=== PATIENT | male | born 1960 | race Hispanic/Latino ===

== ENCOUNTER 2016-07-17 20:29 | Emergency (ER) | payer OTHER ==
--- NOTE | 2016-07-17 21:13 | ED.PDOC ---
History of Present Illness - General Chief Complaint: Lower Extremity Injury Stated Complaint: R FOOT,,, PAIN Time Seen by Provider: 07/17/16 21:08 Source: patient Exam Limitations: no limitations - History of Present Illness Initial Comments: Patient presents after stepping off of a step and losing his balance, twisting his right ankle. He did not fall to the ground completely. He can walk on the foot with mild to moderate pain. Pain is located anterior to both the lateral and medial malleoli. There is also pain on the proximal dorsomedial foot. Non- radiating. Worse with movement, better with rest. He believes that he has injured the foot before a long time ago. No other complaints. 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 Timing/Duration: 1/2 hour Severity: mild Improving Factors: rest Worsening Factors: movement Associated Symptoms: denies symptoms Allergies/Adverse Reactions: Allergies NO KNOWN ALLERGY Allergy (Verified 07/17/16 21:07) Review of Systems - Review of Systems Constitutional: States: no symptoms reported EENTM: States: no symptoms reported Respiratory: States: no symptoms reported Cardiology: States: no symptoms reported Gastrointestinal/Abdominal: States: no symptoms reported Genitourinary: States: no symptoms reported Musculoskeletal: States: no symptoms reported Skin: States: no symptoms reported Neurological: States: no symptoms reported Endocrine: States: no symptoms reported Hematologic/Lymphatic: States: no symptoms reported Family Medical History - Family History Mother Family History: Unknown Living Status: Unknown Physical Exam - Physical Exam General Appearance: Alert Respiratory: lungs clear Cardiovascular/Chest: regular rate, rhythm Gastrointestinal/Abdominal: normal bowel sounds, non tender, soft Extremity: other - Patient can dorsiflex, plantarflex, ne, and invert the right foot against resistance but it causes mild to moderate pain in all directions. He is mildly TTP on the proximal dorsomedial foot. Full sensation on entire foot. Can flex and extend the toes against resistance without pain. Capillary refill less than 2 seconds. Dorsal pedis pulse 2+. Neurologic: no motor/sensory deficits Progress - Progress Progress: 07/17/16 21:52 Radiographs of the right foot and ankle showed no acute fracture. Departure - Departure Clinical Impression: Sprain of right ankle or foot Disposition: Discharge to Home or Self Care Condition: Good Departure Forms: ED Discharge - Pt. Copy, Patient Portal Self Enrollment Diet: resume usual diet Activity: increase activity as tolerated Additional Instructions: Ice to area three times per day for three days then switch to heat twice per day. May use ibuprofen or tylenol for pain control. Follow up with your regular physician if pain continues beyond two weeks. Return to activity as tolerated.
[2016-07-17 21:14] VITALS: O2SAT 97
--- NOTE | 2016-07-17 21:42 | RAD ---
EXAM DESCRIPTION: XR ANKLE 3 OR MORE VIEWS; XR FOOT 3 OR MORE VIEWS CLINICAL HISTORY: 55 y/o Mfall. Right foot and ankle pain. COMPARISON: None. TECHNIQUE: Three views of the right ankle and three views of the right foot. FINDINGS: No acute fractures or dislocations are identified. No osseous destructive lesions. IMPRESSION: No acute fracture is identified. Electronically signed by: Luis Miguel Doe MD 07/17/2016 21:40
[2016-07-17 22:04] VITALS: BP 118/72; TEMP 97.5
== END 2016-07-17 22:03 | disposition home or self-care (01) ==
LOC: ER 20:29
DX: S93.401A Sprain of unspecified ligament of right ankle, initial encounter (principal); X50.1XXA Overexertion from prolonged static or awkward postures, initial encounter; Y92.239 Unspecified place in hospital as the place of occurrence of the external cause; Y99.0 Civilian activity done for income or pay

== ENCOUNTER 2019-12-20 05:14 | Day surgery (SDC) | payer BC ==
[2019-12-20] MEDS ORDERED: LACTATED RINGERS 1,000 ML ONE (06:56)
[2019-12-20] MEDS ORDERED: LACTATED RINGERS 1,000 ML IVS ONE (12:25)
--- NOTE | 2019-12-20 13:31 | OP ---
DATE OF PROCEDURE: 12/20/19 PREOPERATIVE DIAGNOSIS: 1. Average risk colorectal cancer screening. This is the patient's first colonoscopy. 2. Incidental indication is perianal discomfort. POSTOPERATIVE DIAGNOSIS: 1. Small internal hemorrhoids. 2. Sigmoid diverticulosis. PROCEDURE: 1. Colonoscopy. SURGEON: Daniel Jack MD. COMPLICATIONS: None apparent. BLOOD LOSS: None. MEDICATIONS: Monitored anesthesia care. DESCRIPTION OF PROCEDURE: Informed consent was obtained prior to sedation. The preprocedure cardiopulmonary assessment was satisfactory. The patient was placed in the left lateral decubitus position and was sedated. A digital rectal exam was performed and reveals no external hemorrhoids, no anal fissures, no rectal masses or any other abnormality in the rectal vault. The tip of the Olympus colonoscope was inserted in the rectum and guided over to the cecum. The cecum was identified by locating the ileocecal valve and appendiceal orifice. The prep was excellent. Retroflexed view of the right colon was obtained. The mucosa of the cecum, ascending colon, hepatic flexure, transverse colon, splenic flexure, descending colon and sigmoid colon was closely examined. Direct and retroflexed views of the rectum were obtained. There were no polyps identified. The patient has a few scattered sigmoid diverticula. The patient has small internal hemorrhoids. RECOMMENDATIONS: 1. The patient needs followup colonoscopy in 10 years. 2. If the patient's hemorrhoids are causing significant symptoms, they can be banded by ma in [place] or in [place] by Dr. Carl. He is planned on seeing Dr. Carl for hernia surgery. #[id number] cc: Adan Arredondo MD MTDD
[2019-12-20 14:18] VITALS: BP 133/77; TEMP 97.8; O2SAT 96
== END 2019-12-20 14:05 | disposition home or self-care (01) ==
LOC: AMB 05:14
PROVIDERS: ATTEND Internal Medicine Gastroenterology
DX: Z12.11 Encounter for screening for malignant neoplasm of colon (principal); K64.8 Other hemorrhoids; K57.30 Diverticulosis of large intestine without perforation or abscess without bleeding; K21.9 Gastro-esophageal reflux disease without esophagitis; E11.9 Type 2 diabetes mellitus without complications; K59.00 Constipation, unspecified; Z79.1 Long term (current) use of non-steroidal anti-inflammatories (NSAID)
CPT/HCPCS: 00812; 36416; 45378; 82948; J7120

== ENCOUNTER → 2020-05-09 | Outpatient (CLI) | payer BC ==
--- NOTE | 2020-05-09 19:54 | CT ---
EXAM DESCRIPTION: Abdomen/Pelvis w/Contrast CLINICAL HISTORY: 59 years Male, left abdominal pain COMPARISON: None. TECHNIQUE: CT of the abdomen and pelvis acquired with IV contrast material. Coronal and sagittal reformations provided. This exam was performed according to our departmental dose-optimization program, which includes automated exposure control, adjustment of the mA and/or kV according to patient size and/or use of iterative reconstruction technique. FINDINGS: Lung bases: Ground glass consolidation in the right lower lobe. 3 mm round solid nodule posterior inferior left lower lobe. Solid Organs: Unremarkable liver, spleen, gallbladder, pancreas, adrenal glands, and kidneys. GI tract: Unremarkable stomach. No small bowel obstruction. Diverticula of the sigmoid colon without pericolonic inflammation, fluid collection. Moderate stool in the ascending, transverse, and descending colon. Normal appendix. Vascular: Mild atherosclerosis. Musculoskeletal and soft tissues: No acute fracture or aggressive appearing osseous lesion. Soft tissues unremarkable. Urinary bladder: Normal. Prostate: Normal. Other: None. IMPRESSION: 1. Pneumonia versus aspiration in the right lower lobe. Imaging features can be seen with viral pneumonia, though are nonspecific and can occur with a variety of infectious and noninfectious processes. [PneInd] Reference: https://pubs.rsna.org/doi/full/10.1148/ryct.3934802755 2. 3 mm left solid pulmonary nodule. No routine follow-up imaging is recommended. These guidelines do not apply to immunocompromised patients and patients with cancer. Follow up in patients with significant comorbidities as clinically warranted. For lung cancer screening, adhere to Lung-RADS guidelines. Reference: Radiology. 2017; 284(1):228-43. 3. Sigmoid diverticulosis. 4. Moderate chronic stool. Electronically signed by: Dwight Castorena MD 05/09/2020 7:52 PM [facility]
== END ==
LOC: CT 07:56
PROVIDERS: ATTEND Surgery
DX: R91.8 Other nonspecific abnormal finding of lung field (principal); R91.1 Solitary pulmonary nodule; K57.30 Diverticulosis of large intestine without perforation or abscess without bleeding